=== PATIENT | female | born 1970 | race Caucasian/White ===

== ENCOUNTER 2024-02-20 10:04 | Emergency (ER) | payer BC, SELFPAY ==
--- NOTE | ~2024-02-20 | XR_ITS ---
EXAMINATION: XR chest 2V DATE: 02/20/2024 10:44 INDICATION: Cough. TECHNIQUE: Frontal and lateral views of the chest were obtained. COMPARISON: None. FINDINGS: There is no pneumonia, pleural effusion, or pneumothorax. The heart size is normal. IMPRESSION: 1. No acute cardiopulmonary disease. Reviewed, dictated and finalized at location A. ITORY SALES MANAGER MEDICAL
[2024-02-20 10:21] VITALS: BP 131/54; PULSE 75; RESP 18; TEMP 36.4; O2SAT 96
--- NOTE | 2024-02-20 10:24 | ED.URI ---
HPI - URI/Sore Throat General Chief Complaint: Upper Respiratory Infection Stated Complaint: Cough/Chest Pain When Cough Time Seen by Provider: 02/20/24 10:24 Source: patient, RN notes reviewed and old records reviewed Mode of arrival: ambulatory Limitations: no limitations History of Present Illness HPI Narrative: [age] year female to Express Care complaint intermittent subjective fever, intermittent cough and intermittent chest discomfort with cough for months . Patient states that symptoms have become acutely worse over the last few days. Patient reports trying variety of vrsj-xas-zfpqzmo medications without relief. patient denies shortness of breath, difficulty swallowing, allergies, pertinent medical history. Patient able tolerate fluids by mouth. Patient resting comfortably in exam room in no acute distress. Respirations even nonlabored. Patient able to speak in complete sentences without difficulty. Related Data Allergies Allergy/AdvReac Type Severity Reaction Status Date / Time No Known Allergies Allergy Verified 02/20/24 10:28 Review of Systems Review of Systems: All systems reviewed & are unremarkable except as noted in HPI and below Constitutional: Constitutional: Reports no additional constitutional complaints Eyes: Eyes: Reports no additional eye complaints ENT: Reports system reviewed and no additional complaints, except as documented Cardiovascular: Cardiovascular: Reports no additional cardiovascular complaints, Denies chest pain and Denies dyspnea Respiratory: Respiratory: Reports no additional respiratory complaints, Denies cough and Denies dyspnea Musculoskeletal: Musculoskeletal: Reports no additional musculoskeletal complaints Neurologic: Reports system reviewed and no additional complaints, except as documented Psychiatric: Psychiatric: Reports no additional psychiatric complaints PMFSH Comments At the time of my signature, I reviewed and agree with the nursing past medical, surgical, social, and family history. There is no relevant family history pertinent to the patient complaint. Exam Const: General: cooperative, comfortable, no acute distress, alert and well nourished Nutritional Appearance: well nourished Orientation/consciousness: patient oriented x3 Limitations: no limitations HENMT: Head: normal to inspection Ears: external ears normal Face/Nose/Sinus: Normal external nose present, Normal nares present, normal facial exam, No erythema and No edema Face and sinus: normal facial exam, no erythema and no edema Mouth: Yes Normal oral and palatal mucosa present Eyes: General: appearance normal, both eyes and all related structures Neck: Neck: normal visual inspection, full ROM and no meningeal signs Lymphatic: no lymphadenopathy noted and no lymphedema noted Chest: Chest palpation & inspection: normal inspection of the chest Resp: Effort & Inspection: normal respiratory effort and able to speak in complete sentences Auscultation: rhonchi upper bilaterally Cardio: Jugular venous distension: no JVD Rate: regular rate Rhythm: regular rhythm Back/Spine/Pelvis: Cervical Spine: cervical ROM normal Skin: General skin exam: normal color, no rashes or lesions noted and turgor normal Neuro: General: patient oriented x3, gait normal, moves all extremities and no meningeal signs Speech: normal speech Gait exam (Neuro): Normal gait present Extrem: General: normal to inspection, full ROM and capillary refill normal Psych: Appearance: grossly normal and well kempt Course Course Emergency Course: Some parts of this dictation were generated by voice recognition software and may contain typographical and/or grammatical inaccuracies. Level of Care: Express Care Visit Vital Signs Vital signs: Vital Signs Temperature 36.4 C 02/20/24 10:21 Pulse Rate 75 02/20/24 10:21 Respiratory Rate 18 02/20/24 10:21 Blood Pressure 131/54 L 02/20/24 10:21 Pulse Oximetry 96 02/20/24 10:21 Temperature 36.4 C 02/20/24 10:21 Pulse Rate 75 02/20/24 10:21 Respiratory Rate 18 02/20/24 10:21 Blood Pressure 131/54 L 02/20/24 10:21 Pulse Oximetry 96 02/20/24 10:21 reviewed MDM - URI/Sore Throat MDM Narrative Medical decision making narrative: [age] year female to Express Care complaint intermittent subjective fever, intermittent cough and intermittent chest discomfort with cough for months . Patient states that symptoms have become acutely worse over the last few days. Patient reports trying variety of sucw-xkj-gsdkpkw medications without relief. patient denies shortness of breath, difficulty swallowing, allergies, pertinent medical history. Patient able tolerate fluids by mouth. Patient resting comfortably in exam room in no acute distress. Respirations even nonlabored. Patient able to speak in complete sentences without difficulty. On exam, bilateral upper rhonchi auscultation. Exam otherwise unremarkable. Chest x-ray negative in clinic for acute findings. Patient is sitting comfortably in exam room nontoxic in appearance. Patient appropriate for outpatient treatment and follow-up. Discharge instructions reviewed with patient, as well as provided in writing per nursing staff. The instructions also include specific and strict return/GO TO THE ER as well as f/u information. All questions have been answered, and the patient deny any further questions with discharge and discharge plan. Some parts of this dictation were generated by voice recognition software and may contain typographical and/or grammatical inaccuracies. Differential Diagnosis Differential diagnosis: Likely upper respiratory infection, croup, otitis media, sinusitis, viral infection, bronchitis, influenza and pharyngitis Imaging Data Radiologist's impression: EXAMINATION: XR chest 2V DATE: 02/20/2024 10:44 INDICATION: Cough. TECHNIQUE: Frontal and lateral views of the chest were obtained. COMPARISON: None. FINDINGS: There is no pneumonia, pleural effusion, or pneumothorax. The heart size is normal. IMPRESSION: 1. No acute cardiopulmonary disease. Discharge Plan Discharge Clinical Impression: Bronchitis Patient Disposition: Home, Self-Care Condition: Stable Instructions: Antibiotic Form Additional Instructions: -Alternate Tylenol and Motrin per package directions for fever or pain. -Antihistamine medication such as Benadryl at night and Zyrtec/Claritin/Farideh during the day can help improve symptoms. -Use Flonase twice a day for 5 days then daily to help reduce the inflammation and dry up your sinuses. -You can also use Sudafed or Mucinex. Be sure to drink plenty of water with these medications at least 8 ounces with every dose and it is important to drink 8 to 10 glasses of water per day. Water is a natural decongestant -Eat and drink things that are easy to swallow, like tea or soup, or popsicles. -Oral rinses such as: Salt water gargles and/or may use topical anesthetic (eg. Chloraseptic spray) or lozenges to relieve dryness or throat pain). -Frequent hand washing or hand human resources department supervisor is one of the best ways to prevent spread of infection. -Using a vaporizer or humidifier at night will also help thin secretions and help with coughing up phlegm. -Follow up with primary care provider in 2-3 days if condition is not improving; or seek ER visit if you have trouble breathing, cannot drink enough fluids, have muffled voice, difficulty opening your mouth, or severe swelling. Prescriptions: New azithromycin 250 mg tablet 250 mg PO DAILY Qty: 6 0RF Rx Instructions: 250 mg orally. Take TWO tablets today, then one tablet daily for 4 days. Follow-up/Referrals: UNKNOWN,DOCTOR [Primary Care Provider] - Stand Alone Forms: Work/School Release IP
== END 2024-02-20 11:15 | disposition home or self-care (01) ==
PROVIDERS: Emergency Provider Nurse Practitioner Family
DX: J40 Bronchitis, not specified as acute or chronic (principal)
CPT/HCPCS: 71046; 99213; G0463

== ENCOUNTER 2024-03-21 13:57 | Emergency (ER) | payer BC, SELFPAY ==
--- NOTE | ~2024-03-21 | XR_ITS ---
EXAMINATION: [id number] Exam Date/Time: 03/21/2024 14:03 JEWEL SUPERVISOR HISTORY: right sided rib pain Comparison: None available. RESULT: Lines, tubes, and devices: None. Lungs and pleura: Clear. Cardiothymic silhouette: Stable. Other: No acute osseous or upper abdominal finding. IMPRESSION: No acute cardiopulmonary process. No acute osseous finding in the right ribs. Reviewed, dictated and finalized at location K. L SUPERVISOR
[2024-03-21 14:04] VITALS: BP 133/69; PULSE 71; RESP 20; TEMP 36.7; O2SAT 98
--- NOTE | 2024-03-21 14:27 | ED.URI ---
HPI - URI/Sore Throat General Chief Complaint: Upper Respiratory Infection Stated Complaint: cough/right side pain History of Present Illness HPI Narrative: Patient presents with a cough. Patient states she has been coughing so hard she thinks she broke her right rib. No shortness of breath no chest pain but very tender to the right rib area. Related Data Allergies Allergy/AdvReac Type Severity Reaction Status Date / Time No Known Allergies Allergy Verified 02/20/24 10:28 Review of Systems Review of Systems: CONSTITUTIONAL: Denies fever, chills, or sweats. EYES: Denies visual changes, redness, or discharge. ENT: Denies rhinorrhea, congestion, sore throat, or otalgia. CARDIOVASCULAR: Denies chest pain, palpitations, or edema. RESPIRATORY: Denies cough or dyspnea. GASTROINTESTINAL: Denies abdominal pain, nausea, vomiting, or diarrhea. GENITOURINARY: Denies dysuria or hematuria. SKIN: Denies rash or itching. MUSCULOSKELETAL: Denies back pain, joint pain, or myalgia. NEUROLOGIC: Denies headache, numbness, or weakness. PSYCHIATRIC: Denies anxiety or depression. PMF Comments At time of signature, agree with nursing past medical, surgical, social and family history. There is no relevant family history pertinent to the presenting complaint Exam Narrative: My URI exam The patient is a well-developed, well-nourished in no acute distress. SKIN: Skin is warm and dry without erythema, swelling or exudate. There is good turgor. No tenting. HEAD: Atraumatic. Normocephalic. No temporal or scalp tenderness. EYES: Moist and bright. Sclera and conjunctivae normal. No discharge. PERRLA. Extraocular motions intact. Gross visual acuity intact. EARS: Pinna is normal shape and contour. Clear external auditory canals. TM pearly tapia with good cone of light, no erythema or suppuration. Bilateral cerumen noted no gross hearing deficit. NOSE: pink, moist mucosa with good air movement. Clear rhinorrhea without nasal flaring. Septum midline. Mouth: moist mucous membranes. THROAT; mild erythema noted to posterior oropharynx with moderate postnasal drainage. Without exudate or ulceration.. Uvula midline. Normal movement of soft palate. NECK: Supple and nontender with full range of motion without discomfort. No meningeal signs. LUNGS: Equal and bilateral breath sounds without wheezes, rales or rhonchi. CHEST: The chest wall is without retractions or use of accessory muscles. ALL PAIN REPRODUCIBLE. RIB TENDER. NO CREPITUS OR SQ EMPHYSEMA OR DEFORMITY OR STEP OFFS. NO ECCHYMOSIS OR LESIONS. \ HEART: Has a regular rate and rhythm without murmur, gallops, click or rub. ABDOMEN: Soft, nontender with positive active bowel sounds. No rebound tenderness. EXTREMITIES: Without cyanosis, clubbing or edema. Equal 2+ distal pulses and 2 second capillary refill noted. NEUROLOGIC: alert, active, . The patient moves all extremities with normal muscle strength. Normal muscle tone is noted. Normal coordination is noted. NO focal neurological findings noted. Course Course Level of Care: Express Care Visit Vital Signs Vital signs: Vital Signs Temperature 36.7 C 03/21/24 14:04 Pulse Rate 71 03/21/24 14:04 Respiratory Rate 20 03/21/24 14:04 Blood Pressure 133/69 03/21/24 14:04 Pulse Oximetry 98 03/21/24 14:04 Oxygen Delivery Room Air 03/21/24 14:04 Temperature 36.7 C 03/21/24 14:04 Pulse Rate 71 03/21/24 14:04 Respiratory Rate 20 03/21/24 14:04 Blood Pressure 133/69 03/21/24 14:04 Pulse Oximetry 98 03/21/24 14:04 Oxygen Delivery Room Air 03/21/24 14:04 Please ROSIBEL schedule a followup visit with your personal physician for further evaluation and treatment. Including recheck and discussion of your blood pressure. If your symptoms persist, change or worsen significantly before you can contact your personal physician then please, without delay, go to the emergency department for further evaluation MDM - URI/Sore Throat Imaging Data Radiologist's impression: [facility] [address] [place] [address] XRay Report Signed Patient: Damaris Mckeon : 1970 MR#: [id number] Age: 53 Acct:[id number] Loc: [facility] ADM Date: 03/21/24Attending Dr: Ordering Physician: Denae Bobo APRN Date of Service: 03/21/24 Procedure(s): XR ribs RT w PA CXR Accession Number(s): [id number] cc: Denae Bobo APRN; RETORT FORKER PHYSICIAN~ EXAMINATION: [id number] Exam Date/Time: 03/21/2024 14:03 MERCHANDISING TEAM LEAD HISTORY: right sided rib pain Comparison: None available. RESULT: Lines, tubes, and devices: None. Lungs and pleura: Clear. Cardiothymic silhouette: Stable. Other: No acute osseous or upper abdominal finding. IMPRESSION: No acute cardiopulmonary process. No acute osseous finding in the right ribs. Discharge Plan Discharge Clinical Impression: Cough, Rib pain on right side Patient Disposition: Home, Self-Care Condition: Stable Instructions: Rib Contusion (ED) Additional Instructions: Medication as prescribed Increase fluids Follow-up with primary care provider in 2-3 days for re-evaluation If any new or worsening symptoms please go to ER immediately further evaluation treatment Patient Language: Indonesian Prescriptions: New prednisone 20 mg tablet 40 mg PO DAILY 5 Days Qty: 10 0RF benzonatate 100 mg capsule 100 mg PO TID PRN (Reason: cough) 5 Days Qty: 10 0RF albuterol sulfate 90 mcg/actuation HFA aerosol inhaler 2 puff inhalation QID PRN (Reason: shortness of breath or wheezing) Qty: 1 0RF Follow-up/Referrals: PHYSICIAN,RETORT FORKER [Primary Care Provider] - Stand Alone Forms: Work/School Release IP
--- OUTSIDE RECORDS SUMMARY | 2024-03-25 17:05 | XMS_ITS | Patient Health Summary ---
Author Organization [facility] Address [address] [place] [address] Care Team Providers Care Distribution Collection Operator Name Role Phone Unavailable Primary Care Provider Unavailabl e Note from [facility],non-owned Affiliates and Associated Physician Practices is amultiple site organization consisting of ambulatory clinics and hospital sitesin [place], [place], [place] and [place]. This disclosure is being madepursuant to the Care Everywhere program and may not contain all information available regarding this patient. Last updated 17.[facility] Allergies No known active allergies Medications * Be aware that medications may not be up to date on this document. Alwaysverify current medications with the patient. * albuterol HFA (PROAIR HFA) 108 (90 BASE) MCG/ACT inhaler(Started 08/04/2017) Inhale 2 puffs by mouth every 4 hours as needed for Shortness of Breath, Wheezing or Cough * methylPREDNISolone (MEDROL DOSEPAK) 4 MG tablet(Started 08/04/2017) Take by mouth as directed Social History Tobacco Use Types Packs/Day Years Used Date Smoking Tobacco: Never Sex and Gender Information Value Date Recorded Sex Assigned at Not on file Gender Identity Not on file Sexual Orientation Not on file Last Filed Vital Signs Vital Sign Reading Time Taken Comments Blood Pressure 118/80 08/04/2017 10:49 AM CDT Pulse 77 08/04/2017 10:49 AM CDT Temperature 37.1 ??C (98.8 ??F) 08/04/2017 10:49 AM C DT Respiratory Rate - - Oxygen Saturation - - Inhaled Oxygen Concentration - - Weight 98 kg (216 lb) 08/04/2017 10:49 AM CDT Height 160 cm (5' 3 ) 08/04/2017 10:49 AM CDT Body Mass Index 38.26 08/04/2017 10:49 AM CDT
--- OUTSIDE RECORDS SUMMARY | 2024-03-25 17:05 | XMS_ITS | Clinical Summary ---
Author Organization [facility] Address [address] [place] [address] Phone Care Team Providers Care Np Name Role Phone Shantelle Miller Joanna GEROPSYCHOLOGIST, DENTAL PATIENT COORDINATOR Primary Care Provider [phone] Allergies No known active allergies Medications Benzonatate 200 MG Capsule Take 200 mg by mouth. 4 Active albuterol 108 (90 Base) MCG/ACT Aerosol Solution take 2 Puffs by inhalation every 4 hours as needed for Wheezing or Cough. 6.7 g 4 Active Additional Information Patient not taking.Reported on 07/26/2023 Active Problems No known active problems Family History Medical History Relation Name Comments Cancer Father No Known Problems Mother Relation Name Status Comments Father Mother Alive Social History Tobacco Use Types Packs/Day Years Used Date Smoking Tobacco: Former Cigarettes Smokeless Tobacco: Never Tobacco Cessation:Counseling Given: Not Answered Alcohol Use Standard Drinks/Week Comments Not Currently 0 (1 standard drink = 0.6 oz pur e alcohol) PHQ-2 Answer Date Recorded Total Score - Questions 1-9 0 07/07 Sexually Active Control Partners Comments Not Currently Comments No Sex and Gender Information Value Date Recorded Sex Assigned at Not on file Legal Sex Female 11:53 PM CDT Gender Identity Not on file Sexual Orientation Not on file Last Filed Vital Signs Vital Sign Reading Time Taken Comments Blood Pressure 114/84 07/26/2023 8:58 AM CDT Pulse 75 07/26/2023 8:58 AM CDT Temperature 36.6 ??C (97.9 ??F) 07/26/2023 8:58 AM CD T Respiratory Rate 20 07/26/2023 8:58 AM CDT Oxygen Saturation 98% 07/26/2023 8:58 AM CDT Inhaled Oxygen Concentration - - Weight 107.1 kg (236 lb 3.2 oz) 07/26/2023 8:58 AM CDT Height 160 cm (5' 3 ) 07/26/2023 8:58 AM CDT Body Mass Index 41.84 07/26/2023 8:58 AM CDT Plan of Treatment Health Maintenance Due Date Last Done Comments Hepatitis C Virus (HCV) Screening 1970 TdaP Immunization 1970 Hepatitis B Immunization (1 of 3 - 19+ 3-dose series) 11/09/1991 Pap Smear 1993 Cervical Cancer Screening (CCS) 2002 HPV/Cotest 2002 Colonoscopy 2017 Colorectal Cancer Screening 2017 Cologuard 2022 Immunochemical Fecal Occult Blood 2022 Mammogram 2022 Zoster Immunization (1 of 2) 2022 Influenza Immunization (#1) 2023 SARS-COV-2 Immunization (2 - season) 2023 04/03/2021 Respiratory Syncytial Virus (RSV) Immunization (Adult) (1 - 1-dose 75+ series) 11/09/2047 Meningococcal Immunization (ACWY) Aged Out No longer eligible based on patient's age to complete this topic Pneumococcal Immunization Combined Aged Out No longer eligible based on patient's age to complete this topic Rotavirus Immunization Aged Out No lo nger eligible based on patient's age to complete this topic Insurance [facility] Care Teams Np Relationship Specialty Start Date End Date Shantelle Miller, GEROPSYCHOLOGIST, DENTAL PATIENT COORDINATOR [address] [place] [address] PCP - General Certified Nurse Practitioner 07/19/23
--- OUTSIDE RECORDS SUMMARY | 2024-03-25 17:05 | XMS_ITS | Clinical Summary ---
Author Organization [facility] [employer] Address [address] [place] [address] Care Team Providers Care Entry Level Accounting Clerk Name Role Phone Unavailable Primary Care Provider Unavailabl e Source Comments [facility] [employer],non-owned Affiliates and Associated Physician Practices is amultiple site organization consisting of ambulatory clinics and hospital sitesin [place], [place], [place] and [place]. This disclosure is being madepursuant to the Care Everywhere program and may not contain all information available regarding this patient. Last updated 17.[facility] [employer] Allergies No known active allergies Medications * Be aware that medications may not be up to date on this document. Alwaysverify current medications with the patient. Medication Sig Dispensed Refills Start Date End Date Status albuterol HFA (PROAIR HFA) 108 (90 BASE) MCG/ACT inhaler Inhale 2 puffs by mouth every 4 hours as needed for Shortness of Breath, Wheezing or Cough 1 Inhaler 08/04/2017 Active methylPREDNISolone (MEDROL DOSEPAK) 4 MG tablet Take by mouth as directed 1 Each 08/04/2017 Active Social History Tobacco Use Types Packs/Day Years [...] Mass Index 38.26 08/04/2017 10:49 AM CDT Plan of Treatment Health Maintenance Due Date Last Done Comments COLOGUARD (AGES 45-75) - COL ON CA SCREENING 1972 COLON MONITORING 1972 COLONOSCOPY - COLON CA SCREENING 1972 CT COLONOGRAPHY - COLON CA SCREENING 1972 Colorectal Cancer Screening 1972 FIT - COLON CA SCREENING 1972 FLEX SIG - COLON CA SCREENING 1972 LIPID TESTING 1972 MAMMOGRAM 1972 PAP SMEAR 1972 HIV SCREENING 11/09/1987 HEPATITIS C SCREENING 11/04/1990 DTAP/TDAP/TD VACCINES (1 - Tdap) 11/09/1991 HEPATITIS B VACCINE (1 of 3 - 19+ 3-dose series) 11/09/1991 SCREENING FOR DIABETES 08/04/2017 ZOSTER VACCINE (1 of 2) 2022 DEPRESSION SCREENING 04/08/2023 COVID-19 VACCINE (1 - 2023-2 5 season) 2023 INFLUENZA VACCINE (#1) 2023 HIB VACCINE Aged Out No longer eligi ble based on patient's age to complete this topic HPV VACCINE Aged Out No longer eligi ble based on patient's age to complete this topic MENINGOCOCCAL VACCINE Aged Out No hamilton zach eligible based on patient's age to complete this topic PNEUMOCOCCAL VACCINE Aged Out No long er eligible based on patient's age to complete this topic
--- OUTSIDE RECORDS SUMMARY | 2024-03-25 17:05 | XMS_ITS | Referral Summary ---
Author Organization [facility] Address [address] [place] [address] Care Team Providers Care Tree Inspector Name Role Phone Unavailable Primary Care Provider Unavailabl e Source Comments [facility],non-owned Affiliates and Associated Physician Practices is amultiple site organization consisting of ambulatory clinics and hospital sitesin [place], [place], [place] and [place]. This disclosure is being madepursuant to the Care Everywhere program and may not contain all information available regarding this patient. Last updated 17.[facility] Allergies No known active allergies Medications * [...] 08/04/2017 10:49 AM CDT Plan of Treatment Not on file
--- OUTSIDE RECORDS SUMMARY | 2024-03-25 17:05 | XMS_ITS | Encounter Summary ---
Author Organization [facility] Address [address] [place] [address] Care Team Providers Care Apprentice Lineman Third Step Name Role Phone Unavailable Primary Care Provider Unavailabl e Reason for Visit * Reason Onset Date Comments Follow-up 08/06/2017 Encounter Details Date Type Department Care Team (Late st Contact Info) Description 08/06/2017 Telephone [facility] [address] [address] Carito Damon Follow-up Social History Tobacco Use Types Packs/Day Years Used Date Smoking Tobacco: Never Sex and Gender Information Value Date Recorded Sex Assigned at Not on file Gender Identity Not on file Sexual Orientation Not on file documented as of this encounter Plan of Treatment Not on file documented as of this encounter Visit Diagnoses Not on filedocumented in this encounter
--- OUTSIDE RECORDS SUMMARY | 2024-03-25 17:05 | XMS_ITS | Encounter Summary ---
Author Organization [facility] Address [address] [place] [address] Care Team Providers Care Emergency Room Doctor Name Role Phone Unavailable Primary Care Provider Unavailabl e Reason for Visit * Reason Comments Cough Congestion PLEURISY Encounter Details Date Type Department Care Team (Late st Contact Info) Description 08/04/2017 10:40 AM CDT Office Visit [facility] AT [address] [address] Provider, Derek Exp [facility] Bronchospasm (Primary Dx) Social History Tobacco Use Types Packs/Day Years Used Date Smoking Tobacco: Never Sex and Gender Information Value Date Recorded Sex Assigned at Not on file Gender Identity Not on file Sexual Orientation Not on file documented as of this encounter Last Filed Vital Signs Vital Sign Reading [...] Mass Index 38.26 08/04/2017 10:49 AM CDT documented in this encounter Patient Instructions * Patient Instructions* Mae Howard APRN-CNP - 08/04/2017 10:58 AM CDT Images from the original note were not included. Acute Bronchitis TEACHER PHYSICALLY IMPAIRED: Acute bronchitis is swelling and irritation in the air passages of your lungs. This irritation may cause you to cough or have other breathing problems. Acute bronchitis often starts because of another illness, such as a cold or the flu. The illness spreads from your nose and throat to your windpipeand airways. Bronchitis is often called a chest cold. Acute bronchitis lasts about 3 to 6 weeks andis usually not a serious illness. Your cough can last for several weeks. You may have any of the following symptoms: ?? A cough with sputum that may be clear, yellow, or green ?? Feeling more tired than usual, and body aches ?? A fever and chills ?? Wheezing when you breathe ?? A tight chest or pain when you breathe or cough Seek care immediately if: ?? You cough up blood. ?? Your lips or fingernails turn blue. ?? You feel like you are not getting enough air when you breathe. Contact your healthcare provider if: ?? You have a fever. ?? Your breathing problems do not go away or get worse. ?? Your cough does not get better within 4 weeks. ?? You have questions or concerns about your condition or care. Self-care: ?? Get more rest. Rest helps your body to heal. Slowly start to do more each day. Rest when you feel it is needed. ?? Avoid irritants in the air. Avoid chemicals, fumes, and dust. Wear a face mask if you must work around dust or fumes. Stay inside on days when air pollution levels are high. If you have allergies,stay inside when pollen counts are high. Do not use aerosol products, such as spray-on deodorant, bug spray, and hair spray. ?? Do not smoke or be around others who smoke. Nicotine and other chemicals in cigarettes and cigars damages the cilia that move mucus out of your lungs. Ask your healthcare provider for information if you currently smoke and need help to quit. E-cigarettes or smokeless tobacco still contain nicotine. Talk to your healthcare provider before you use these products. ?? Drink liquids as directed. Liquids help keep your air passages moist and help you cough up mucus. You may need to drink more liquids when you have acute bronchitis. Ask how much liquid to drink each day and which liquids are best for you. ?? Use a humidifier or vaporizer. Use a cool mist humidifier or a vaporizer to increase air moisture in your home. This may make it easier for you to breathe and help decrease your cough. Prevent acute bronchitis by doing the following: ?? Get the vaccinations you need. Ask your healthcare provider if you should get vaccinated againstthe flu or pneumonia. ?? Prevent the spread of germs. You can decrease your risk of acute bronchitis and other illnesses by doing the following: ?? Wash your hands often with soap and water. Carry germ-killing hand lotion or gel with you. You can use the lotion or gel to clean your hands when soap and water are not available. ?? Do not touch your eyes, nose, or mouth unless you have washed your hands first. ?? Always cover your mouth when you cough to prevent the spread of germs. It is best to cough into a tissue or your shirt sleeve instead of into your hand. Ask those around you cover their mouths when they cough. ?? Try to avoid people who have a cold or the flu. If you are sick, stay away from others as much as possible. Medicines: Your healthcare provider may give you any of the following: ?? Ibuprofen or acetaminophen are medicines that help lower your fever. They are available without a doctor's order. Ask your healthcare provider which medicine is right for you. Ask how much to takeand how often to take it. Follow directions. These medicines can cause stomach bleeding if not taken correctly. Ibuprofen can cause kidney damage. Do not take ibuprofen if you have kidney disease, anulcer, or allergies to aspirin. Acetaminophen can cause liver damage. Do not take more than 4,000 milligrams in 24 hours. ?? Decongestants help loosen mucus in your lungs and make it easier to cough up. This can help you breathe easier. ?? Cough suppressants decrease your urge to cough. If your cough produces mucus, do not take a cough suppressant unless your healthcare provider tells you to. Your healthcare provider may suggest that you take a cough suppressant at night so you can rest. ?? Inhalers may be given. Your healthcare provider may give you one or more inhalers to help you breathe easier and cough less. An inhaler gives your medicine to open your airways. Ask your healthcare provider to show you how to use your inhaler correctly. Follow up with your healthcare provider as directed: Write down questions you have so you will remember to ask them during your follow-up visits. ?? 2017 [employer] Information is for End User's use only and may not be sold, redistributed or otherwise used for commercial purposes. All illustrations and images included in CareNotes?? are the copyrighted property of [email or web address], [employer]. or [employer]. The above information is an lab aide only. It is not intended as medical advice for individual conditions or treatments. Talk to your doctor, nurse or pharmacist before following any medical regimen to see if it is safe and effective for you. documented in this encounter Progress Notes * Mae Howard APRN-CNP - 08/04/2017 10:53 AM CDT Images from the original note were not included. [facility] Chief Complaint Patient presents with ??? Cough ??? Congestion ??? PLEURISY SUBJECTIVE: HPI Comments: 46 yo female presents with persistent cough for 2 days. Afebrile. States hx of seasonal allergies that she takes OTC allergy meds for, began taking those several weeks ago. Past Medical History: Diagnosis Date ??? Seasonal allergies No current outpatient prescriptions on file prior to visit. No current facility-administered medications on file prior to visit. Past Surgical History: Procedure Laterality Date ??? Fracture Repair ??? Lumbar Diskectomy Social History Social History ??? Marital status: Single Spouse name: N/A ??? Number of children: N/A ??? Years of education: N/A Occupational History ??? Not on file. Social History Main Topics ??? Smoking status: Never Smoker ??? Smokeless tobacco: Not on file ??? Alcohol use Not on file ??? Drug use: Not on file ??? Sexual activity: Not on file Other Topics Concern ??? Not on file Social History Narrative ??? No narrative on file No family history on file. Current Outpatient Prescriptions Medication Sig Dispense Refill ??? albuterol HFA (PROAIR HFA) 108 (90 BASE) MCG/ACT inhaler Inhale 2 puffs by mouth every 4 hours as needed for Shortness of Breath, Wheezing or Cough 1 Inhaler 0 ??? methylPREDNISolone (MEDROL DOSEPAK) 4 MG tablet Take by mouth as directed 1 Each 0 No current facility-administered medications for this visit. No Known Allergies REVIEW OF SYSTEMS: Review of Systems Constitutional: Negative. HENT: Positive for congestion. Respiratory: Positive for cough and sputum production. Cardiovascular: Negative. Gastrointestinal: Negative. OBJECTIVE: General appearance: alert, well appearing, and in no distress. BP 118/80 Pulse 77 Temp 98.8 ??F (37.1 ??C) (Oral) Ht 1.6 m (5' 3 ) Wt 98 kg (216 lb) BMI 38.26 kg/m2 Physical Exam Constitutional: She is oriented to person, place, and time and well-developed, well-nourished, and in no distress. HENT: Head: Normocephalic. Right Ear: External ear normal. Left Ear: External ear normal. Nose: Nose normal. Mouth/Throat: Oropharynx is clear and moist. Neck: Normal range of motion. Neck supple. Cardiovascular: Normal rate and regular rhythm. Pulmonary/Chest: Effort normal and breath sounds normal. No respiratory distress. She has no wheezes. She has no rales. Persistent cough throughout exam. Sats 96 RA. No wheezes or consolidations. Neurological: She is alert and oriented to person, place, and time. Skin: Skin is warm and dry. ASSESSMENT: No results found for this visit on 08/04/17. Encounter Diagnosis Name Primary? Bronchospasm Yes PLAN: Orders Placed This Encounter ??? albuterol HFA (PROAIR HFA) 108 (90 BASE) MCG/ACT inhaler Sig: Inhale 2 puffs by mouth every 4 hours as needed for Shortness of Breath, Wheezing or Cough Dispense: 1 Inhaler Refill: 0 ??? methylPREDNISolone (MEDROL DOSEPAK) 4 MG tablet Sig: Take by mouth as directed Dispense: 1 Each Refill: 0 Acute Bronchitis TEACHER PHYSICALLY IMPAIRED: Acute bronchitis is swelling and irritation in the air passages of your lungs. This irritation may cause you to cough or have other breathing problems. Acute bronchitis often starts because of another illness, such as a cold or the flu. The illness spreads from your nose and throat to your windpipeand airways. Bronchitis is often called a chest cold. Acute bronchitis lasts about 3 to 6 weeks andis usually not a serious illness. Your cough can last for several weeks. You may have any of the following symptoms: ?? A cough with sputum that may be clear, yellow, or green ?? Feeling more tired than usual, and body aches ?? A fever and chills ?? Wheezing when you breathe ?? A tight chest or pain when you breathe or cough Seek care immediately if: ?? You cough up blood. ?? Your lips or fingernails turn blue. ?? You feel like you are not getting enough air when you breathe. Contact your healthcare provider if: ?? You have a fever. ?? Your breathing problems do not go away or get worse. ?? Your cough does not get better within 4 weeks. ?? You have questions or concerns about your condition or care. Self-care: ?? Get more rest. Rest helps your body to heal. Slowly start to do more each day. Rest when you feel it is needed. ?? Avoid irritants in the air. Avoid chemicals, fumes, and dust. Wear a face mask if you must work around dust or fumes. Stay inside on days when air pollution levels are high. If you have allergies,stay inside when pollen counts are high. Do not use aerosol products, such as spray-on deodorant, bug spray, and hair spray. ?? Do not smoke or be around others who smoke. Nicotine and other chemicals in cigarettes and cigars damages the cilia that move mucus out of your lungs. Ask your healthcare provider for information if you currently smoke and need help to quit. E-cigarettes or smokeless tobacco still contain nicotine. Talk to your healthcare provider before you use these products. ?? Drink liquids as directed. Liquids help keep your air passages moist and help you cough up mucus. You may need to drink more liquids when you have acute bronchitis. Ask how much liquid to drink each day and which liquids are best for you. ?? Use a humidifier or vaporizer. Use a cool mist humidifier or a vaporizer to increase air moisture in your home. This may make it easier for you to breathe and help decrease your cough. Prevent acute bronchitis by doing the following: ?? Get the vaccinations you need. Ask your healthcare provider if you should get vaccinated againstthe flu or pneumonia. ?? Prevent the spread of germs. You can decrease your risk of acute bronchitis and other illnesses by doing the following: ?? Wash your hands often with soap and water. Carry germ-killing hand lotion or gel with you. You can use the lotion or gel to clean your hands when soap and water are not available. ?? Do not touch your eyes, nose, or mouth unless you have washed your hands first. ?? Always cover your mouth when you cough to prevent the spread of germs. It is best to cough into a tissue or your shirt sleeve instead of into your hand. Ask those around you cover their mouths when they cough. ?? Try to avoid people who have a cold or the flu. If you are sick, stay away from others as much as possible. Medicines: Your healthcare provider may give you any of the following: ?? Ibuprofen or acetaminophen are medicines that help lower your fever. They are available without a doctor's order. Ask your healthcare provider which medicine is right for you. Ask how much to takeand how often to take it. Follow directions. These medicines can cause stomach bleeding if not taken correctly. Ibuprofen can cause kidney damage. Do not take ibuprofen if you have kidney disease, anulcer, or allergies to aspirin. Acetaminophen can cause liver damage. Do not take more than 4,000 milligrams in 24 hours. ?? Decongestants help loosen mucus in your lungs and make it easier to cough up. This can help you breathe easier. ?? Cough suppressants decrease your urge to cough. If your cough produces mucus, do not take a cough suppressant unless your healthcare provider tells you to. Your healthcare provider may suggest that you take a cough suppressant at night so you can rest. ?? Inhalers may be given. Your healthcare provider may give you one or more inhalers to help you breathe easier and cough less. An inhaler gives your medicine to open your airways. Ask your healthcare provider to show you how to use your inhaler correctly. Follow up with your healthcare provider as directed: Write down questions you have so you will remember to ask them during your follow-up visits. ?? 2017 [employer] Information is for End User's use only and may not be sold, redistributed or otherwise used for commercial purposes. All illustrations and images included in CareNotes?? are the copyrighted property of [employer], [employer]. or [employer]. The above information is an lab aide only. It is not intended as medical advice for individual conditions or treatments. Talk to your doctor, nurse or pharmacist before following any medical regimen to see if it is safe and effective for you. documented in this encounter Plan of Treatment Not on file documented as of this encounter Visit Diagnoses Diagnosis Bronchospasm- Primary Acute bronchospasm documented in this encounter
--- OUTSIDE RECORDS SUMMARY | 2024-03-25 17:06 | XMS_ITS | Encounter Summary ---
Author Organization [facility] Care Team Providers Care Tilt Wall Supervisor Name Role Phone Paul Shantelle Marshall SYSTEM SAFETY ENGINEER, SURVEYOR OIL WELL DIRECTIONAL Primary Care Provider [phone] Encounter Details Date Type Department Care Team (Latest Contact Info) Description 07/26/2023 Travel Social History Tobacco Use Types Packs/Day Years Used Date Smoking Tobacco: Former Cigarettes Smokeless Tobacco: Never Alcohol Use Standard Drinks/Week Comments Not Currently [...] Diagnoses Not on filedocumented in this encounter Additional Health Concerns Assessment Noted Time PHQ-9 Depression Total Score: 0 07/19/19 24 4:10 PM CDT documented as of this encounter Care Teams Tilt Wall Supervisor Relationship Specialty Start Date End Date Shantelle Miller, SYSTEM SAFETY ENGINEER, SURVEYOR OIL WELL DIRECTIONAL [address] [place] [address] PCP - General Certified Nurse Practitioner 07/19/23 documented as of this encounter
--- OUTSIDE RECORDS SUMMARY | 2024-03-25 17:06 | XMS_ITS | Encounter Summary ---
Author Organization [facility] Care Team Providers Care Billboard Erector Name Role Phone Shantelle Miller TREE PRUNER, PUBLICATIONS DISTRIBUTION CLERK Primary Care Provider [phone]- [phone] Encounter Details Date Type Department Care Team (Latest Contact Info) Description 07/19/2023 Travel Social History Tobacco Use Types Packs/Day [...] on file documented as of this encounter Functional Status * Question Answer Date of Assessment Author Little interest or pleasure in doing things Not at all 07/19/2023 4:10 PM CDT Magda Gannon RMA Feeling down, depressed, or hopeless Not at all 07/19/2023 4:10 PM CDT Magda Gannon RMA * Over the past 2 weeks, how often have you been bothered by any of the following problems? Question Answer Date of Assessment Author Patient Health Questionnaire -2 Score 0 07/19/2023 4:10 PM CDT Magda Gannon RMA documented as of this encounter Plan of Treatment Not on file documented as of this encounter Visit Diagnoses Not on filedocumented in this encounter Additional Health Concerns Assessment Noted Time PHQ-9 Depression Total Score: 0 07/19/19 24 4:10 PM CDT documented as of this encounter Care Teams Billboard Erector Relationship Specialty Start Date End Date Shantelle Miller, TREE PRUNER, PUBLICATIONS DISTRIBUTION CLERK [address] [place] [address] PCP - General Certified Nurse Practitioner 07/19/23 documented as of this encounter
--- OUTSIDE RECORDS SUMMARY | 2024-03-25 17:06 | XMS_ITS | Encounter Summary ---
Author Organization [facility] Address [address] [place] [address] Phone Care Team Providers Care Movie Theater Usher Name Role Phone Shantelel Miller Joanna FIELDS, WOODS OVERSEER Primary Care Provider [phone]- [phone] Reason for Referral * Medical Care (Routine) - Canceled Specialty Diagnoses / Procedures Referred By Contac t Referred To Contact Diagnoses Colon cancer screening Procedures OFFICE/OP NEW LVL 3 LOW MDM/30-44 MIN OFFICE/OP EST LVL 3 LOW MDM/20-29 MIN Helga Quijano MD [address] [place] [address] Phone: tel: fax: [facility] - Gastroenterology [facility] [address] [place] [address] Phone: tel: fax: Referral ID Status Reason Start Date Expiration Date V isits Requested Visits Authorized [id number] Canceled 07/26/2023 1 11 Scheduling Instructions Damaris is being referred for screening colonoscopy. Please contact patient for scheduling questions or concerns. * Radiology Services (Routine) - Authorized Specialty Diagnoses / Procedures Referred By Contac t Referred To Contact Radiology Diagnoses Breast cancer screening by mammogram Procedures SOPHY SCREENING BILATERAL DIGITAL W CAD Helga Quijano MD [address] [place] [address] Phone: tel: fax: Referral ID Status Reason Start Date Expiration Date V isits Requested Visits Authorized [id number] Authorized 07/26/2023 1 1 Reason for Visit * Reason Comments Cough Saw Shantelle last week f or this//hasn't had to use the inhaler//pt is better Runny Nose Encounter Details Date Type Department Care Team (Late st Contact Info) Description 07/26/2023 8:45 AM CDT Office Visit [facility] - Primary Care - [place] [address] [place] [address] Helga Quijano MD [address] [place], [place] [id number] Primary hypertension (Primary Dx); Colon cancer screening; Breast cancer screening by mammogram; Class 3 severe obesity with serious comorbidity and body mass index (BMI) of 40.0 to 44.9 in adult, unspecified obesity type (HCC) Discharge Disposition: Discharged to home or Selfcare Social History Tobacco Use Types Packs/Day Years [...] Mass Index 41.84 07/26/2023 8:58 AM CDT documented in this encounter Progress Notes * Helga Quijano MD - 07/26/2023 8:45 AM CDT Subjective: Subjective Patient is a 52-year-old female who comes in with chief complaint of high blood pressure. Her bloodpressure today was normal but she reports she has had elevated blood pressure in the past. Patient also needs preventative health care with a mammogram and colonoscopy. She has a history of morbid obesity with BMI of 41.8. The history is provided by the patient. Preventive Care This is a recurrent problem. Treatments tried: Patient is due for mammogram and colon cancer evaluation. She also needs dietary advice on weight loss. Review of Systems Objective: Objective Physical Exam Vitals and nursing note reviewed. Constitutional: General: She is not in acute distress. Appearance: Normal appearance. She is well-developed. She is obese. She is not diaphoretic. HENT: Head: Normocephalic and atraumatic. Right Ear: External ear normal. Left Ear: External ear normal. Nose: Congestion and rhinorrhea present. Mouth/Throat: Mouth: Mucous membranes are moist. Pharynx: No posterior oropharyngeal erythema. Eyes: General: No scleral icterus. Right eye: No discharge. Left eye: No discharge. Conjunctiva/sclera: Conjunctivae normal. Pupils: Pupils are equal, round, and reactive to light. Neck: Trachea: No tracheal deviation. Cardiovascular: Rate and Rhythm: Normal rate and regular rhythm. Heart sounds: Normal heart sounds. No murmur heard. Pulmonary: Effort: Pulmonary effort is normal. No respiratory distress. Breath sounds: Normal breath sounds. No wheezing, rhonchi or rales. Chest: Chest wall: No tenderness. Abdominal: General: Bowel sounds are normal. There is no distension. Palpations: Abdomen is soft. Tenderness: There is no abdominal tenderness. There is no right CVA tenderness, left CVA tenderness, guarding or rebound. Musculoskeletal: General: Normal range of motion. Cervical back: Normal range of motion and neck supple. No rigidity or tenderness. Lymphadenopathy: Cervical: No cervical adenopathy. Skin: General: Skin is warm and dry. Findings: No rash. Neurological: General: No focal deficit present. Mental Status: She is alert and oriented to person, place, and time. Cranial Nerves: No cranial nerve deficit. Psychiatric: Mood and Affect: Mood normal. Behavior: Behavior normal. Thought Content: Thought content normal. Judgment: Judgment normal. Assessment and Plan Assessment & Plan See Diagnoses, Orders, Follow-up, and Instructions 1. Primary hypertension Patient will be checked for diabetes, liver disease, kidney disease, and hyperthyroidism - CMP (COMPREHENSIVE METABOLIC PANEL); Future - THYROID SCREEN WITH REFLEX; Future 2. Colon cancer screening Patient will be referred to GI for colonoscopy versus Cologuard - GASTROENTEROLOGY REFERRAL; Future 3. Breast cancer screening by mammogram Patient should have a mammogram to look for signs of early breast cancer - SOPHY SCREENING BILATERAL DIGITAL W CAD; Future 4. Class 3 severe obesity with serious comorbidity and body mass index (BMI) of 40.0 to 44.9 in adult, unspecified obesity type (HCC) Patient was advised on low-fat diet and encouraged to exercise as tolerated she will be screened for diabetes mellitus. She will also be evaluated for hyperlipidemia which could cause cardiac risk problems - HEMOGLOBIN A1C W/ ESTIMATED GLUCOSE; Future - COMPLETE BLOOD COUNT (CBC) WITH DIFF; Future - CMP (COMPREHENSIVE METABOLIC PANEL); Future - LIPID PANEL; Future - THYROID SCREEN WITH REFLEX; Future Follow-up in 3-6 months, sooner for any new medical problems which may arise. Patient may use [id number] Flonase as desired for nasal congestion. documented in this encounter Miscellaneous Notes * Addendum Note - Helga Quijano MD - 07/26/2023 8:45 AM CDTAddended by: HELGA QUIJANO on: 07/29/2023 09:35 AM Modules accepted: Level of Service documented in this encounter Plan of Treatment Scheduled Orders Name Type Priority Associated Diagnoses Orde r Schedule SOPHY SCREENING BILATERAL DIGITAL W CAD Imaging Routine Breast cancer screening by mammogram Expected: 02/24/2024, Expires: 08/05/2024 Scheduled Referrals Name Type Priority Associated Diagnoses Order Schedule GASTROENTEROLOGY REFERRAL Outpatient Referral Routine Colon cancer screening Expected: 07/26/2023, Expires: 07/25/2024 documented as of this encounter Results * (ABNORMAL) LIPID PANEL (07/26/2023 9:58 AM CDT) CHOLESTEROL 206(H) <200 mg/dL 07/26/2023 1:00 PM CDT [facility] TRIGLYCERIDES 126 <150 mg/dL 07/26/2023 1:00 PM CDT [facility] HDL CHOLESTEROL 59 >40 mg/dL 1:00 PM CDT [facility] LDL 122 <130 mg/dL 07/26/2023 1:00 PM CDT [facility] VLDL 25 10 - 50 mg/dL 07/26/2023 1:00 PM CDT [facility] CHOL/HDL RATIO 3.5 0.0 - 4.4 07/26/2023 1:00 PM CDT [facility] NON-HDL CHOLESTEROL 147(H) <130 mg/dL 07/26/2023 1:00 PM CDT [facility] IS THE PATIENT REQUIRED TO BE FASTING? Yes 07/26/2023 1:00 PM CDT [facility] HAS THE PATIENT BEEN FASTING? Yes 07/26/2023 1:00 PM CDT [facility] Blood Venipuncture / Unknown 07/26/2023 9:58 AM CDT 07/26/2023 9:58 AM CDT us Helga Quijano MD CHEMISTRY ORDERABLES Final Result [facility] [address] [place] [address] * CMP (COMPREHENSIVE METABOLIC PANEL) (07/26/2023 9:58 AM CDT) SODIUM 140 136 - 145 mmol/L 07/26/2023 1:00 PM CDT [facility] POTASSIUM 4.5 3.5 - 5.1 mmol/L 07/26/2023 1:00 PM CDT [facility] CHLORIDE 105 98 - 107 mmol/L 07/26/2023 1:00 PM CDT [facility] CO2, VENOUS 27 22 - 30 mmol/L 07/26/2023 1:00 PM CDT [facility] ANION GAP 12.5 <18.0 mmol/L 07/26/2023 1:00 PM CDT [facility] GLUCOSE 96 70 - 99 mg/dL 07/26/2023 1:00 PM CDT [facility] BUN 10 10 - 20 mg/dL 07/26/2023 1:00 PM CDT [facility] CREATININE, BLOOD 0.86 0.60 - 1.00 mg/dL 07/26/2023 1:00 PM CDT [facility] BUN/CREATININE RATIO 12 12 - 20 ratio 07/26/2023 1:00 PM CDT [facility] TOTAL PROTEIN 7.8 6.3 - 8.2 g/dL 07/26/2023 1:00 PM CDT [facility] ALBUMIN 4.2 3.5 - 5.0 g/dL 07/26/2023 1:00 PM CDT [facility] A/G RATIO 1.2 1.0 - 2.2 07/26/2023 1:00 PM CDT [facility] CALCIUM 9.7 8.7 - 10.5 mg/dL 07/26/2023 1:00 PM CDT [facility] T BILI 0.3 0.2 - 1.2 mg/dL 07/26/2023 1:00 PM CDT [facility] SGOT (AST) 19 5 - 34 U/L 07/26/2023 1:00 PM CDT [facility] SGPT (ALT) 17 0 - 55 U/L 07/26/2023 1:00 PM CDT [facility] ALKALINE PHOSPHATASE 93 40 - 150 U/L 07/26/2023 1:00 PM CDT [facility] IS THE PATIENT REQUIRED TO BE FASTING? Yes 07/26/2023 1:00 PM CDT [facility] HAS THE PATIENT BEEN FASTING? Yes 07/26/2023 1:00 PM CDT [facility] GFR, ESTIMATED >60 >=60 07/26/2023 1:00 PM CDT [facility] Comment: Creatinine Clearance is the preferred criteria for selecting drug dose adjustments in renally impaired patients. ??The GFR is provided as additional pertinent clinical information. GFR is reported in mL/min/1.73 sq m. Calculation based on the Chronic Kidney Disease Epidemiology Collaboration (CKD- EPI) equation refit without adjustment for race. GFR, EST. >60 >=60 024 1:00 PM CDT [facility] GFR, EST. NONAFRICAN >60 >=60 07/26/2023 1:00 PM CDT [facility] Blood Venipuncture / Unknown 07/26/2023 9:58 AM CDT 07/26/2023 9:58 AM CDT us Helga Quijano MD CHEMISTRY ORDERABLES Final Result [facility] [address] [place] [address] * HEMOGLOBIN A1C W/ ESTIMATED GLUCOSE (07/26/2023 9:58 AM CDT) HGB-A1C 5.9 4.0 - 6.0 % 07/26/2023 12:53 PM CDT [facility] Est Average Glucose 122.6 mg/dL 07/26/2023 12:53 PM CDT [facility] Blood Venipuncture / Unknown 07/26/2023 9:58 AM CDT 07/26/2023 9:58 AM CDT Narrative [facility] - 07/26/2023 12:53 PM CDT HEMOGLOBIN A1C: DIABETIC PATIENTS: WELL-CONTROLLED: ?? 6.2 - 7.0 INTERMEDIATE WELL-CONTROLLED: ??7.0 - 9.0 POORLY-CONTROLLED: ??>9.0 us Helga Quijano MD CHEMISTRY ORDERABLES Final Result [facility] [address] [facility] [place] [address] documented in this encounter Visit Diagnoses Diagnosis Primary hypertension- Primary Unspecified essential hypertension Colon cancer screening Special screening for malignant neoplasms, colon Breast cancer screening by mammogram Class 3 severe obesity with serious comorbidity and body mass index (BMI) of 40.0 to 44.9 in adult, unspecified obesity type (HCC) documented in this encounter Additional Health Concerns Assessment Noted Time PHQ-9 Depression Total Score: 0 07/19/19 24 4:10 PM CDT documented as of this encounter Care Teams Movie Theater Usher Relationship Specialty Start Date End Date Shantelle Miller, ENVIRONMENTAL CONFLICT MANAGER, WOODS OVERSEER [address] [place] [address] PCP - General Certified Nurse Practitioner 07/19/23 documented as of this encounter
--- OUTSIDE RECORDS SUMMARY | 2024-03-25 17:06 | XMS_ITS | Encounter Summary ---
Author Organization [facility] Address [address] [place] [address] Phone Care Team Providers Care Security And Compliance Analyst Name Role Phone Shantelle Miller APRN, JAROD Primary Care Provider [phone]- [phone] Reason for Visit * Reason Comments Cough Patient stated that she was seen at the urgent care in [place] on 07/16/23 was given a Medrol dose pack and tessalon perles. Patient stated that she feels that they have made her cough worse. Encounter Details Date Type Department Care Team (Late st Contact Info) Description 07/19/2023 4:00 PM CDT Office Visit [facility] - Primary Care - [place] [address] [place] [address] Shantelle Miller APRN, BI MANAGER [address] [place] [address] Upper respiratory tract infection, unspecified type (Primary Dx); Acute cough Discharge Disposition: Discharged to home or Selfcare [...] Sign Reading Time Taken Comments Blood Pressure 130/90 07/19/2023 4:11 PM CDT Pulse 82 07/19/2023 4:11 PM CDT Temperature 37.7 ??C (99.8 ??F) 07/19/2023 4:11 PM CD T Respiratory Rate 18 07/19/2023 4:11 PM CDT Oxygen Saturation 95% 07/19/2023 4:11 PM CDT Inhaled Oxygen Concentration - - Weight 106.1 kg (234 lb) 07/19/2023 4:11 PM CDT Height 160 cm (5' 3 ) 07/19/2023 4:11 PM CDT Body Mass Index 41.45 07/19/2023 4:11 PM CDT documented in this encounter Functional Status * Question Answer [...] Gannon RMA documented as of this encounter Patient Instructions * Patient Instructions* Shantelle Miller APRN, CNP - 07/19/2023 4:00 PM CDT Take all medications as prescribed. Please continue with a balanced lifestyle of exercise and healthy eating. If any question, please call. Thanks for coming in today! * Attachments The following attachments cannot be sent through Care Everywhere. * Upper Respiratory Infection Adult [id number] (Mongolian) documented in this encounter Progress Notes * Magda Gannon RMA - 07/19/2023 4:00 PM CDT Damaris Mckeon, 52 y.o., female is here for Cough (Onset since 07/16/2023) Medication Refills: Patient reports/denies need for medication refills. Orders Pended: no Requested Prescriptions No prescriptions requested or ordered in this encounter Home Medications Medication Sig Start Date End Date Taking? Authorizing Provider Benzonatate 200 MG Capsule Take 200 mg by mouth. 07/16/23 Yes ProviderManish MD methylPREDNISolone (MEDROL DOSPACK) 4 MG Tablet Therapy Pack 4 mg. Yes Provider, MD Manish There are no discontinued medications. I have reviewed the home medication list with the patient and have reconciled discrepancies. The list is accurate to the best of my knowledge. Smoking Status: Social History Tobacco Use Smoking status: Former Types: Cigarettes Smokeless tobacco: Never Vaping Use Vaping Use: Never used Substance Use Topics Alcohol use: Not Currently Drug use: Never Smoking Cessation Counseling Given: no Health Care Maintenance: Health Maintenance Due Topic Date Due Hepatitis C Virus (HCV) Screening Never done DTaP/Tdap/Td Immunization (1 - Tdap) Never done Hepatitis B Immunization (1 of 3 - 19+ 3-dose series) Never done Cervical Cancer Screening (CCS) Never done Colorectal Cancer Screening Never done Mammogram Never done Zoster Immunization (1 of 2) Never done SARS-COV-2 Immunization ( - season) 2022 Orders Pended: no The following BPA's have been addressed with the patient today: Smoking, Depression, and Fall Risk * Shantelle Miller, DONNIE, BI MANAGER - 07/19/2023 4:00 PM CDT [facility] [address] [address] Dept: [phone] Dept Loc: [phone] Loc Patient: Damaris Mckeon : 1970 Sex: female Subjective: HPI: Damaris Mckeon presents for Cough (Patient stated that she was seen at the urgent care in [place] on 07/16/23 was given a Medrol dose pack and tessalon perles. Patient stated that she feels that they have made her cough worse.) . Pt states that she started with cold symptoms on Saturday night, Pt states that she has been warm here and there but unknown if she had a fever. Pain in chest when coughing and stress incontinence when coughing. Pt was seen in Urgent care in [place] on Saturday, she was given Tessalon Perle and medrol dose pack. She feels that the Tessalon perle made her cough worse. Pt cough is productive at times. Blood pressure is 130/90 at today's visit. Review of Systems Constitutional: Negative. HENT: Positive for congestion and sore throat. Eyes: Negative. Respiratory: Positive for cough and sputum production. Cardiovascular: Negative. Gastrointestinal: Positive for diarrhea. Genitourinary: Negative. Musculoskeletal: Negative. Skin: Negative. Neurological: Negative. Psychiatric/Behavioral: Negative. j Objective: Vitals: 07/19/23 1611 BP: 130/90 Pulse: 82 Resp: 18 Temp: 99.8 ??F (37.7 ??C) TempSrc: Temporal SpO2: 95% Weight: 234 lb (106.1 kg) Height: 5' 3 (1.6 m) LMP 03/14/2020 (Approximate) Body mass index is 41.45 kg/m??. Physical Exam Vitals and nursing note reviewed. Constitutional: General: She is not in acute distress. Appearance: She is well-developed. HENT: Head: Normocephalic and atraumatic. Right Ear: External ear normal. Left Ear: External ear normal. Mouth/Throat: Mouth: Mucous membranes are moist. Pharynx: Oropharynx is clear. Eyes: Conjunctiva/sclera: Conjunctivae normal. Neck: Vascular: No carotid bruit. Cardiovascular: Rate and Rhythm: Normal rate and regular rhythm. Heart sounds: Normal heart sounds. Pulmonary: Effort: Pulmonary effort is normal. No respiratory distress. Breath sounds: Normal breath sounds. Musculoskeletal: Right lower leg: No edema. Left lower leg: No edema. Skin: General: Skin is warm and dry. Neurological: Mental Status: She is alert and oriented to person, place, and time. Psychiatric: Mood and Affect: Mood normal. Behavior: Behavior normal. Thought Content: Thought content normal. Judgment: Judgment normal. Medical Decision Making: Assessment & Plan Diagnoses and all orders for this visit: Upper respiratory tract infection, unspecified type Acute cough Other orders - Benzonatate 200 MG Capsule; Take 200 mg by mouth. - methylPREDNISolone (MEDROL DOSPACK) 4 MG Tablet Therapy Pack; 4 mg. - albuterol 108 (90 Base) MCG/ACT Aerosol Solution; take 2 Puffs by inhalation every 4 hours as needed for Wheezing or Cough. Follow-up Information Return if symptoms worsen or fail to improve. Albuterol inhaler ordered PRN cough Continue medrol dose pack Discontinue the Tessalon Perle. OTC cough med- Robitussin OTC tylenol/motrin for the pain Rest and increase fluid. Encourage to continue with the appt next week. Encourage a healthy diet and lifestyle. LOS Today OFFICE/OP NEW LVL 3 LOW MDM/30-44 MIN documented in this encounter Plan of Treatment Not on file documented as of this encounter Visit Diagnoses Diagnosis Upper respiratory tract infection, unspecified type- Primary Acute cough documented in this encounter Additional Health Concerns Assessment Noted Time PHQ-9 Depression Total Score: 0 07/19/19 24 4:10 PM CDT documented as of this encounter Care Teams Security And Compliance Analyst Relationship Specialty Start Date End Date Shantelle Miller APRN, CNP [address] [place] [address] PCP - General Certified Nurse Practitioner 07/19/23 documented as of this encounter
--- OUTSIDE RECORDS SUMMARY | 2024-03-25 17:06 | XMS_ITS | Encounter Summary ---
Author Organization [facility] Address [address] [place] [address] Phone Care Team Providers Care Hand Blocker Name Role Phone Shantelle Miller APRN, DIGITAL PRODUCTION ARTIST Primary Care Provider [phone]- [phone] Reason for Visit * Reason Onset Date Comments Results 07/26/2023 Labs Encounter Details Date Type Department Care Team (Late st Contact Info) Description 07/26/2023 [facility]phone [facility] - [place] [address] [place] [address] Shantelle Miller APRN, DIGITAL PRODUCTION ARTIST [address] [place] [address] Results (Labs ) Social History Tobacco Use Types Packs/Day Years [...] on file documented as of this encounter Miscellaneous Notes * Telephone Encounter - Paz Joshua RN - 07/29/2023 9:42 AM CDT Pt notified of results by Dr. Quijano via [employer]. * Telephone Encounter - Paz Joshua RN - 07/26/2023 2:31 PM CDT Attempted to call pt, no answer, LVM for pt to call back. * Telephone Encounter - Paz Joshua RN - 07/26/2023 2:26 PM CDT ----- Message from Helga Quijano MD sent at 07/26/2023 2:19 PM CDT ----- Thyroid test is normal. * Telephone Encounter - Paz Joshua RN - 07/26/2023 1:30 PM CDT ----- Message from Helga Quijano MD sent at 07/26/2023 1:08 PM CDT ----- Your triglycerides are normal but your cholesterol is a little high. Cut back on deep fat fried foods and fast food. Your blood count is basically normal. Your blood sugar is normal and your kidney and liver tests are all normal too. The hemoglobin A1c shows that your average blood sugar is on the high side and you are in the prediabetic range. Cutting back on starchy foods and sweets may help lower your average blood sugar and reverse progression toward diabetes. documented in this encounter Plan of Treatment Not on file documented as of this encounter Visit Diagnoses Not on filedocumented in this encounter Additional Health Concerns Assessment Noted Time PHQ-9 Depression Total Score: 0 07/19/19 24 4:10 PM CDT documented as of this encounter Care Teams Hand Blocker Relationship Specialty Start Date End Date Shantelle Miller, FLOOR ASSOCIATE, DIGITAL PRODUCTION ARTIST [address] [place] [address] PCP - General Certified Nurse Practitioner 07/19/23 documented as of this encounter
--- OUTSIDE RECORDS SUMMARY | 2024-03-25 17:06 | XMS_ITS | Encounter Summary ---
Author Organization [facility] Address [address] [place] [address] Phone Care Team Providers Care Cooperer Name Role Phone Shantelle Miller APRN, CUPOLA MELTER Primary Care Provider [phone] Encounter Details Date Type Department Care Team (Late st Contact Info) Description 07/26/2023 11:30 AM CDT Lab [facility] - Primary Care - [address] [id number] Lab, [facility] Class 3 severe obesity with serious comorbidity and body mass index (BMI) of 40.0 to 44.9 in adult, unspecified obesity type (HCC); Primary hypertension Discharge Disposition: Discharged to home or Selfcare [...] on file documented as of this encounter Progress Notes * Samantha Thakur - 07/26/2023 11:30 AM CDT Damaris presents for lab draw per order of Shantelle Miller APRN, CNPPCP - General dated 07/26/23. Specimen collected from right antecubital without incident. sah * Helga Quijano MD - 07/26/2023 11:30 AM CDT Your triglycerides are normal but your cholesterol [...] blood sugar and reverse progression toward diabetes. * Helga Quijano MD - 07/26/2023 11:30 AM CDT Thyroid test is normal. documented in this encounter Plan of Treatment Not on file documented as of this encounter Procedures Procedure Name Priority Date/Time Associated Diagnosis Comments THYROID SCREEN WITH REFLEX Routine 07/26/2023 9:58 AM CDT Primary hypertension Class 3 severe obesity with serious comorbidity and body mass index (BMI) of 40.0 to 44.9 in adult, unspecified obesity type (HCC) THYROID SCREEN WITH REFLEX Routine 07/26/2023 9:58 AM CDT Primary hypertension Class 3 severe obesity with serious comorbidity and body mass index (BMI) of 40.0 to 44.9 in adult, unspecified obesity type (HCC) HEMOGLOBIN A1C W/ ESTIMATED GLUCOSE Routine 07/26/2023 9:58 AM CDT Class 3 severe obesity with serious comorbidity and body mass index (BMI) of 40.0 to 44.9 in adult, unspecified obesity type (HCC) CBC WITH AUTO DIFFERENTIAL Routine 07/26/2023 9:58 AM CDT Class 3 severe obesity with serious comorbidity and body mass index (BMI) of 40.0 to 44.9 in adult, unspecified obesity type (HCC) LIPID PANEL Routine 07/26/2023 9:58 AM CDT Class 3 severe obesity with serious comorbidity and body mass index (BMI) of 40.0 to 44.9 in adult, unspecified obesity type (HCC) CMP (COMPREHENSIVE METABOLIC PANEL) Routine 07/26/2023 9:58 AM CDT Primary hypertension Class 3 severe obesity with serious comorbidity and body mass index (BMI) of 40.0 to 44.9 in adult, unspecified obesity type (HCC) COMPLETE BLOOD COUNT (CBC) WITH DIFF Routine 07/26/2023 9:58 AM CDT Class 3 severe obesity with serious comorbidity and body mass index (BMI) of 40.0 to 44.9 in adult, unspecified obesity type (HCC) documented in this encounter Results * THYROID SCREEN WITH REFLEX (07/26/2023 9:58 AM CDT) Pathologist [facility] TSH 0.748 0.300 - 5.000 mIU/L 07/26/2023 1:15 PM CDT [facility] Blood Venipuncture / Unknown 07/26/2023 9:58 AM CDT 07/26/2023 9:58 AM CDT us Helga Quijano MD CHEMISTRY ORDERABLES Final Result [facility] [address] [place] [address] * (ABNORMAL) CBC WITH AUTO DIFFERENTIAL (07/26/2023 9:58 AM CDT) Pathologist [facility] WBC 11.30 4.00 - 12.00 10(3)/mcL 07/26/2023 12:30 PM CDT [facility] RBC 4.58 3.80 - 5.30 10(6)/mcL 07/26/2023 12:30 PM CDT [facility] HEMOGLOBIN (HGB) 13.1 12.0 - 15.8 g/dL 07/26/2023 12:30 PM CDT [facility] HEMATOCRIT (HCT) 41.6 36.0 - 47.0 % 07/26/2023 12:30 PM CDT [facility] MCV 90.8 82.0 - 96.0 fL 07/26/2023 12:30 PM CDT [facility] MCH 28.6 26.0 - 34.0 pg 07/26/2023 12:30 PM CDT [facility] MCHC 31.5 31.0 - 36.0 g/dL 07/26/2023 12:30 PM CDT [facility] PLATELET COUNT 335 140 - 440 10(3)/mcL 07/26/2023 12:30 PM CDT [facility] RDW 13.7 11.8 - 15.5 % 07/26/2023 12:30 PM CDT [facility] MPV 10.6 9.7 - 12.4 fL 07/26/2023 12:30 PM CDT [facility] NEUTROPHILS 51.5 47.0 - 73.0 % 07/26/2023 12:30 PM CDT [facility] LYMPHOCYTES 38.3 18.0 - 42.0 % 07/26/2023 12:30 PM CDT [facility] MONOCYTES 6.2 4.0 - 12.0 % 07/26/2023 12:30 PM CDT [facility] EOSINOPHILS 3.6 0.0 - 5.0 % 07/26/2023 12:30 PM CDT [facility] BASOPHILS 0.4 0.0 - 1.0 % 07/26/2023 12:30 PM CDT [facility] ABSOLUTE NEUTROPHILS 5.81 1.60 - 7.70 10(3)/mcL 07/26/2023 12:30 PM CDT [facility] ABSOLUTE LYMPHOCYTES 4.33(H) 1.30 - 3.20 10(3)/mcL 07/26/2023 12:30 PM CDT [facility] ABSOLUTE MONOCYTES 0.70 0.20 - 1.00 10(3)/mcL 07/26/2023 12:30 PM CDT [facility] ABSOLUTE EOSINOPHIL 0.41(H) 0.00 - 0.40 10(3)/mcL 07/26/2023 12:30 PM CDT [facility] ABSOLUTE BASOPHILS 0.05 0.00 - 0.10 10(3)/mcL 07/26/2023 12:30 PM CDT [facility] NRBC PER 100 WBC 0 07/26/19 12:30 PM CDT [facility] Blood Venipuncture / Unknown 07/26/2023 9:58 AM CDT 07/26/2023 9:58 AM CDT us Helga Quijano MD HEMATOLOGY ORDERABLES Glo l Result [facility] [address] [place] [address] * (ABNORMAL) LIPID PANEL (07/26/2023 9:58 AM CDT) CHOLESTEROL 206(H) <200 mg/dL 07/26/2023 1:00 PM CDT [facility] TRIGLYCERIDES 126 <150 mg/dL 07/26/2023 1:00 PM CDT [facility] HDL CHOLESTEROL 59 >40 mg/dL 1:00 PM CDT [facility] LDL 122 <130 mg/dL 07/26/2023 1:00 PM CDT [facility] VLDL 25 10 - 50 mg/dL 07/26/2023 1:00 PM CDT [facility] CHOL/HDL RATIO 3.5 0.0 - 4.4 07/26/2023 1:00 PM CDT [facility] NON-HDL CHOLESTEROL 147(H) <130 mg/dL 07/26/2023 1:00 PM CDT [facility] IS THE PATIENT REQUIRED TO BE FASTING? Yes 07/26/2023 1:00 PM CDT [facility] HAS THE PATIENT BEEN FASTING? Yes 07/26/2023 1:00 PM CDT [facility] Blood Venipuncture / Unknown 07/26/2023 9:58 AM CDT 07/26/2023 9:58 AM CDT us Helga Quijano MD CHEMISTRY ORDERABLES Final Result [facility] [address] [place] [address] * CMP (COMPREHENSIVE METABOLIC PANEL) (07/26/2023 9:58 AM CDT) SODIUM 140 136 - 145 mmol/L 07/26/2023 1:00 PM CDT [facility] POTASSIUM 4.5 3.5 - 5.1 mmol/L 07/26/2023 1:00 PM CDT [facility] CHLORIDE 105 98 - 107 mmol/L 07/26/2023 1:00 PM CDT [facility] CO2, VENOUS 27 22 - 30 mmol/L 07/26/2023 1:00 PM CDT [facility] ANION GAP 12.5 <18.0 mmol/L 07/26/2023 1:00 PM CDT [facility] GLUCOSE 96 70 - 99 mg/dL 07/26/2023 1:00 PM CDT [facility] BUN 10 10 - 20 mg/dL 07/26/2023 1:00 PM CDT [facility] CREATININE, BLOOD 0.86 0.60 - 1.00 mg/dL 07/26/2023 1:00 PM CDT [facility] BUN/CREATININE RATIO 12 12 - 20 ratio 07/26/2023 1:00 PM CDT [facility] TOTAL PROTEIN 7.8 6.3 - 8.2 g/dL 07/26/2023 1:00 PM CDT [facility] ALBUMIN 4.2 3.5 - 5.0 g/dL 07/26/2023 1:00 PM CDT [facility] A/G RATIO 1.2 1.0 - 2.2 07/26/2023 1:00 PM CDT [facility] CALCIUM 9.7 8.7 - 10.5 mg/dL 07/26/2023 1:00 PM CDT [facility] T BILI 0.3 0.2 - 1.2 mg/dL 07/26/2023 1:00 PM CDT [facility] SGOT (AST) 19 5 - 34 U/L 07/26/2023 1:00 PM CDT [facility] SGPT (ALT) 17 0 - 55 U/L 07/26/2023 1:00 PM CDT [facility] ALKALINE PHOSPHATASE 93 40 - 150 U/L 07/26/2023 1:00 PM CDT [facility] IS THE PATIENT REQUIRED TO BE FASTING? Yes 07/26/2023 1:00 PM CDT [facility] HAS THE PATIENT BEEN FASTING? Yes 07/26/2023 1:00 PM CDT [facility] GFR, ESTIMATED >60 >=60 07/26/2023 1:00 PM CDT [facility] Comment: Creatinine Clearance is the preferred criteria for selecting drug dose adjustments in renally impaired patients. ??The GFR is provided as additional pertinent clinical information. GFR is reported in mL/min/1.73 sq m. Calculation based on the Chronic Kidney Disease Epidemiology Collaboration (CKD- EPI) equation refit without adjustment for race. GFR, EST. >60 >=60 024 1:00 PM CDT [facility] GFR, EST. NONAFRICAN >60 >=60 07/26/2023 1:00 PM CDT [facility] Blood Venipuncture / Unknown 07/26/2023 9:58 AM CDT 07/26/2023 9:58 AM CDT us Helga Quijano MD CHEMISTRY ORDERABLES Final Result [facility] [address] [place] [address] * HEMOGLOBIN A1C W/ ESTIMATED GLUCOSE (07/26/2023 9:58 AM CDT) HGB-A1C 5.9 4.0 - 6.0 % 07/26/2023 12:53 PM CDT [facility] Est Average Glucose 122.6 mg/dL 07/26/2023 12:53 PM CDT [facility] Blood Venipuncture / Unknown 07/26/2023 9:58 AM CDT 07/26/2023 9:58 AM CDT Narrative [facility] - 07/26/2023 12:53 PM CDT HEMOGLOBIN A1C: DIABETIC PATIENTS: WELL-CONTROLLED: ?? 6.2 - 7.0 INTERMEDIATE WELL-CONTROLLED: ??7.0 - 9.0 POORLY-CONTROLLED: ??>9.0 us Helga Quijano MD CHEMISTRY ORDERABLES Final Result Performing Organization Address City/[facility] Co de Phone Number [facility] [address] [place] [address] documented in this encounter Visit Diagnoses Diagnosis Class 3 severe obesity with serious comorbidity and body mass index (BMI) of 40.0 to 44.9 in adult, unspecified obesity type (HCC) Primary hypertension Unspecified essential hypertension documented in this encounter Additional Health Concerns Assessment Noted Time PHQ-9 Depression Total Score: 0 07/19/19 4:10 PM CDT documented as of this encounter Care Teams Cooperer Relationship Specialty Start Date End Date Shantelle Miller, GLAZING SUPERINTENDENT, CUPOLA MELTER [address] [place] [address] PCP - General Certified Nurse Practitioner 07/19/23 documented as of this encounter
== END 2024-03-21 14:55 | disposition home or self-care (01) ==
PROVIDERS: Emergency Provider Nurse Practitioner Family
DX: R05.9 Cough, unspecified (principal); R07.81 Pleurodynia
CPT/HCPCS: 71101; 99213; G0463